=== PATIENT | male | born 1960 | race Caucasian/White ===

== ENCOUNTER 2023-05-30 09:24 | Emergency (ER) | payer OTHER, SELFPAY ==
--- NOTE | ~2023-05-30 | XR_ITS ---
EXAMINATION: XR chest 2V DATE: 05/30/2023 11:03 INDICATION: Nausea and dizziness TECHNIQUE: AP and lateral views of the chest are obtained. COMPARISON: 01/21/2014 FINDINGS: The lungs are free of acute opacities. No pleural effusion or pneumothorax. The cardiomedia stinal silhouette is normal. The visualized bones and soft tissues are unremarkable. IMPRESSION: 1. No acute cardiopulmonary abnormality. Reviewed, dictated and finalized at location B. LE CAPPER
--- NOTE | ~2023-05-30 | CT_ITS ---
EXAMINATION: CT brain wo con INDICATION: Dizziness COMPARISON: None TECHNIQUE: Standard unenhanced head CT. The dose-length product (DLP) was 605.33 mGy-cm. The mA was a djusted according to patient size. Iterative reconstruction technique was employed. FINDINGS: No acute intraparenchymal hemorrhage. No evidence of mass lesion. No evidence of acute infa rction. There is mild periventricular and subcortical hypodensity probably related to small vessel is chemic disease. There is mild prominence of the sulci and ventricles related to cerebral atrophy. Int racranial calcified cerebral atherosclerosis is noted. No extra-axial collections. No mass effect or midline shift. The orbits and soft tissues are unremarkable. A polyp or mucous retention cyst results in near complete opacification of the right maxillary sinus. IMPRESSION: 1. No acute intracranial abnormality. 2. Age related findings. 3. Right maxillary sinus disease. Reviewed, dictated and finalized at location B. RVATION AGENT
--- NOTE | ~2023-05-30 | CT_ITS ---
EXAMINATION: CTA BRAIN/CAROTID DATE: 05/30/2023 11:55 INDICATION: Dizziness and unsteadiness while walking. TECHNIQUE: Computed tomographic angiography (CTA) of the head and neck was performed with 100 mL Omni paque-350 intravenous contrast. Multiplanar reconstructions and maximum intensity projection 3D-recon structions of the carotid arteries and of the intracranial arteries were created by the technologist on a separate workstation. Automated exposure control and iterative reconstruction technique were emp loyed.The dose-length product was 1139.96 mGy-cm. COMPARISON: Head CT dated 05/30/2023 FINDINGS: Carotid arteries: Visualized portion of the aortic arch demonstrates minimal atherosclerotic plaque with no aneurysm or dissection. The gated vessels arising from the arch are normal in caliber with no evident atheroscle rotic plaque. The cervical portions of the bilateral vertebral arteries are codominant with no hemody namically significant stenosis. There is minimal amount of atherosclerotic plaque with 0% stenosis of the right carotid bulb relative to normal distal artery lumen diameter (NASCET criteria). There is a small amount of atherosclerotic plaque with 0% stenosis of the left carotid bulb relative to normal distal artery lumen diameter. Visualized upper lungs are clear. Superior mediastinum and cervical sof t tissues are unremarkable. Minimal cervical spondylosis. Intracranial arteries Small amount of atherosclerotic plaque with no significant stenosis at the bilateral carotid siphons. There is no hemodynamically significant stenosis in the vertebral, basilar and internal carotid maddie anna. Vertebral arteries are codominant. There are no aneurysms identified. Both A1 and P1 segments are patent. There is also a patent anterior communicating artery. Cerebral arterial arborization appe ars symmetric. No abnormally enhancing brain lesions identified. IMPRESSION: 1. 0% stenosis of the right and left carotid bulbs relative to normal distal artery lumen diameter (N ASCET criteria). 2. Unremarkable cerebral CT angiogram with no hemodynamically significant stenosis, thrombosis or ane urysm. Reviewed, dictated and finalized at location A. TOLOGY PHYSICIAN IMPRESSION: 1. 0% stenosis of the right and left carotid bulbs relative to normal distal ar arlene lumen diameter (NASCET criteria). 2. Unremarkable cerebral CT angiogram with no hemodynamically significant steno sis, thrombosis or aneurysm.
[2023-05-30 09:31] VITALS: BP 129/79; PULSE 72; RESP 18; TEMP 36.3; O2SAT 100
--- NOTE | 2023-05-30 09:37 | ECG_ITS ---
Measurements Intervals Oden Rate: 64 P: 18 [place]: 136 QRS: -14 QRSD: 96 T: 25 QT: 399 QTc: 413 Interpretive Statements SINUS RHYTHM INCOMPLETE RIGHT BUNDLE BRANCH BLOCK DELAYED PRECORDIAL R/S TRANSITION BORDERLINE ECG NO PREVIOUS ECG AVAILABLE FOR COMPARISON Electronically Signed On 05-30-2023 10:19:41 [employer] by Haim Peters D.O.
[2023-05-30 10:02] LABS: Basophils Absolute Auto 0.1 K/mm3 (0.0-0.1); Basophils Percent Auto 0.7 % (0.2-1.2); Eosinophils Absolute Auto 0.1 K/mm3 (0-0.3); Eosinophils Percent Auto 0.5 % (0-4.4); Hematocrit 45.4 % (42.0-52.0); Hemoglobin 14.9 g/dL (14.0-18.0); Immature Granulocyte Absolute 0.04 K/mm3 (0.00-0.031); Immature Granulocyte Percent A 0.4 % (0-0.5); Lymphocytes Absolute Auto 0.62 K/mm3 (0.9-3.2); Lymphocytes Percent Auto 5.9 % (18.3-44.2); Mean Corpuscular HGB Conc 32.8 g/dl (32-36); Mean Corpuscular Volume 94.4 fl (80-100); Mean Platelet Volume 9.6 fl (7.4-10.4); Monocytes Absolute Auto 0.5 K/mm3 (0.1-0.6); Monocytes Percent Auto 4.5 % (2.6-8.5); Neutrophils Absolute Auto 9.2 K/mm3 (1.3-6.7); Platelet Count Result 216 k/mm3 (150-375); Red Blood Count 4.81 M/mm3 (4.6-6.20); Red Cell Distribution Width 13.9 % (11.5-14.5); White Blood Count 10.5 K/mm3 (4.5-10.0)
[2023-05-30 10:34] LABS: Alanine Aminotransferase 18 U/L (6-50); Albumin Level 4.2 g/dL (3.5-5.1); Alkaline Phosphatase 54 U/L (38-126); Anion Gap 7 mmol/L (8-16); Aspartate Amino Transferase 25 U/L (17-59); Bilirubin,Total 0.7 mg/dL (0.2-1.3); Blood Urea Nitrogen 20 mg/dL (9-20); Calcium 9.2 mg/dL (8.4-10.2); Carbon Dioxide 25 mmol/L (22-30); Chloride 108 mmol/L (98-107); Estimated CRCL calculation 62 ml/min; Estimated Glomerular Filt Rate > 60; Glucose 139 mg/dL (65-110); Potassium 3.8 mmol/L (3.4-5.0); Sodium 140 mmol/L (137-145)
--- NOTE | 2023-05-30 10:48 | ED.DIZZY ---
HPI - Dizziness General Chief Complaint: Dizziness Stated Complaint: vertigo Time Seen by Provider: 05/30/23 10:42 Source: patient Mode of arrival: ambulatory Limitations: no limitations History of Present Illness HPI Narrative: This is a 63-year-old male that presents to the emergency department for dizziness. Ongoing intermittently of the last couple a days. Reports room spinning dizziness. Associated with nausea. Denies visual changes, vomiting, chest pain, shortness of breath, numbness, or weakness. Related Data Allergies Allergy/AdvReac Type Severity Reaction Status Date / Time No Known Allergies Allergy Verified 05/30/23 11:27 Review of Systems Review of Systems: CONSTITUTIONAL: Denies fever EYES: Denies visual changes CARDIOVASCULAR: Denies chest pain, palpitations, or edema. RESPIRATORY: Denies dyspnea. GASTROINTESTINAL: Denies vomiting NEUROLOGIC: Denies numbness, or weakness. All systems reviewed & are unremarkable except as noted in HPI and below PMFSH Past Medical History Medical History (Updated 05/30/23 @ 13:29 by Karen Hilliard PA-C) Sensation of feeling cold Wellness examination Family History Family History Father Hypertension Malignant neoplasm of prostate Family history of malignant neoplasm of kidney Social History Social History (Updated 04/05/20 @ 10:14 by Elysia Adorno) Smoking status: Never smoker Second hand tobacco smoke exposure: No Alcohol intake: current Substance use: never Substance use type: does not use Living arrangements: with family Occupation/Education: occupation Gender identity (if verbalized by the patient): Male Sexual Orientation (if Verbalized by the Patient): Straight or Heterosexual Exam Narrative: GENERAL: Well-appearing, well-nourished, and in no acute distress. HEAD: Normocephalic, atraumatic. EYES: PERRLA and EOMI. ENT: Nares clear, no rhinorrhea or epistaxis. Mucous membranes moist. Oropharynx without tonsillar hypertrophy exudate or other lesions. Bilateral TMs pearly camejo non-bulging NECK: Supple. No adenopathy or masses. No carotid bruits or JVD CHEST: Clear to auscultation. No respiratory distress. No wheezes rales or rhonchi HEART: Regular rate and rhythm. No murmur heard. Normal peripheral pulses. EXTREMITIES: Normal range of motion. No edema. Strength equal in bilateral upper and lower extremities (5/5) SKIN: Warm, dry, no rash. NEURO: No focal deficits. Alert and oriented x3. Cranial nerves 2-12 grossly intact. Normal [id number] PSYCH: Normal mood and affect Course Course Emergency Course: Patient and family updated on workup and agree with plan of care Vital Signs Vital signs: Vital Signs Temperature 97.4 F L 05/30/23 09:31 Pulse Rate 72 05/30/23 09:31 Respiratory Rate 18 05/30/23 09:31 Blood Pressure 129/79 05/30/23 09:31 Pulse Oximetry 100 05/30/23 09:31 Oxygen Delivery Room Air 05/30/23 09:31 Temperature 97.4 F L 05/30/23 09:31 Pulse Rate 73 05/30/23 11:31 Respiratory Rate 17 05/30/23 11:31 Blood Pressure 120/68 05/30/23 11:31 Pulse Oximetry 97 05/30/23 11:31 Oxygen Delivery Room Air 05/30/23 09:31 MDM - Dizziness MDM Narrative Medical decision making narrative: Patient presents to the emergency department for dizziness ongoing intermittently over the last couple of days. His vitals are stable. He is neurologically intact. CBC with mild leukocytosis to 10.5. Hemoglobin is normal. Metabolic panel without concerning findings. EKG without acute ST changes. Shows normal sinus rhythm. Chest x-ray without acute cardiopulmonary abnormality. CT brain without acute intracranial abnormality. CTA brain carotid is unremarkable. Patient and family updated on his workup. He was able to ambulate in the ED with a steady gait after IV fluids and meclizine. Instructed to have close follow
[2023-05-30 10:49] VITALS: BP 135/80; PULSE 75; RESP 11; O2SAT 98
[2023-05-30] MEDS: ONDANSETRON INJ 4 MG/2 ML VIAL IV PUSH (11:11)
[2023-05-30] MEDS: SODIUM CHLORIDE 0.9% IV 500 ML 999 ML IV CONT (11:12)
[2023-05-30] MEDS: MECLIZINE HCL 25 MG TABLET PO (11:13)
[2023-05-30 11:31] VITALS: BP 120/68; PULSE 73; RESP 17; O2SAT 97
[2023-05-30 12:15] VITALS: BP 122/69; PULSE 67; RESP 15; O2SAT 96
[2023-05-30 12:16] VITALS: BP 118/76; PULSE 96; RESP 14; O2SAT 97
[2023-05-30 12:30] VITALS: BP 116/73; PULSE 73; RESP 16; O2SAT 96
== END 2023-05-30 14:00 | disposition home or self-care (01) ==
PROVIDERS: Student in an Organized Health Care Education/Training Program; Emergency Provider Physician Assistant
DX: R42 Dizziness and giddiness (principal); I45.10 Unspecified right bundle-branch block
CPT/HCPCS: 36415; 70450; 70496; 70498; 71046; 80053; 85025; 93005; 96361; 96374; 99284; A9270; J2405; J7040; Q9967